=== PATIENT | female | born 1950 | race Two or more races ===

== ENCOUNTER 2024-07-13 12:27 | Emergency (ER) | payer OTHER ==
[~2024-07-13] VITALS: Ht 170.2 cm; Wt 76.2 kg
[2024-07-13 12:34] VITALS: BP 149/76; O2SAT 95
== END 2024-07-13 14:49 | disposition home or self-care (01) ==
LOC: ER 12:27
DX: S80.12XA Contusion of left lower leg, initial encounter (principal); X58.XXXA Exposure to other specified factors, initial encounter; Y93.9 Activity, unspecified; Y92.9 Unspecified place or not applicable; Y99.9 Unspecified external cause status; I87.2 Venous insufficiency (chronic) (peripheral); Z88.8 Allergy status to other drugs, medicaments and biological substances